=== PATIENT | male | born 2000 | race Hispanic/Latino ===

== ENCOUNTER 2019-06-29 20:14 | Emergency (ER) | payer SELFPAY ==
[~2019-06-29 20:14] MED LIST: AMOXICILLIN500 MG PO; MOTRIN400 MG PO; NO HOME MEDS
[2019-06-29] MEDS ORDERED: ZITHROMAX250 MG PO (20:37)
[2019-06-29 20:42] VITALS: BP 123/81
== END 2019-06-29 20:46 | disposition home or self-care (01) | DRG 153 ==
LOC: ED 20:14
DX: J06.9 Acute upper respiratory infection, unspecified (principal)